=== PATIENT | female | born 1950 | race Two or more races ===

== ENCOUNTER 2024-09-26 07:12 | Emergency (ER) | payer OTHER, SELFPAY ==
[2024-09-26] VITALS (7 sets, daily range): BP systolic 141–191; BP diastolic 60–86; PULSE 60–72; RESP 13–18; TEMP 36.1–36.7; O2SAT 97–99; BMI 36.6
--- NOTE | 2024-09-26 09:00 | ED_ITS ---
HPI - General Adult General Chief complaint: Back Pain/Injury Stated complaint: back pain Time Seen by Provider: 09/26/24 08:58 Source: patient, family, RN notes reviewed, old records reviewed and typing section chief Mode of arrival: ambulatory Limitations: language barrier History of Present Illness ED Provider: Tavo HPI narrative: Patient is a 74-year-old female presenting to the emergency department with complaint of right lower back pain radiating down right leg since Saturday. Denies fall or other trauma. Reports history of 3 episodes of similar pain in the past, had CT scan in [place] and diagnosed with sciatica. Has been taking OTC medications, methocarbamol, and patches without relief. BP elevated in triage, patient relating to severe pain, denies headache, vision changes, chest pain, dizziness, or dyspnea. Denies saddle anesthesia, bowel or bladder incontinence, fevers. Denies urinary symptoms. MD complaint: back pain Onset (ago): day(s) Location: back Radiation: distal Severity: severe and similar to prior episodes Related Data Previous Rx's ?Medication ?Instructions ?Recorded diclofenac sodium 1 % topical gel 4 g topical QID #50 grams 09/26/24 prednisone 10 mg tablet See Rx Instructions .Route 09/26/24 .COMPLEX #10 tabs Allergies Allergy/AdvReac Type Severity Reaction Status Date / Time aspirin [ASPIRIN] Allergy Unknown SWELLING Verified 09/26/24 07:24 Review of Systems Review of Systems: As per HPI Yes all other systems are reviewed and are negative Constitutional: Constitutional: Reports as per HPI PMFSH Social History Social History Smoked in Last 30 Days: No Use of substances other than those prescribed or required for medical reasons: No Advance Directives: No Advance Directives Information Provided: No Physical Exam ED Vital Signs: Vital Signs - 24 hr 09/26/24 07:22 09/26/24 08:00 09/26/24 10:00 Temperature 97.0 F 97.8 F 98.1 F Pulse Rate 67 70 60 Respiratory Rate 18 13 13 Blood Pressure 141/67 H 191/86 H 150/60 H Pulse Oximetry 97 98 99 Oxygen Delivery Method Room Air Room Air Room Air 09/26/24 11:02 09/26/24 11:07 Temperature Pulse Rate 72 Respiratory Rate 16 16 Blood Pressure 141/63 H Pulse Oximetry 99 Oxygen Delivery Method Room Air BMI result Body Mass Index 36.6 Vital signs have been reviewed and appear to be correct. Blood pressure normal. Heart rate normal. Respiratory rate normal. Temperature normal. Oxygen saturation normal. Const General: cooperative, healthy appearing and no acute distress Orientation/consciousness: oriented to person, oriented to place, oriented to time and patient oriented x3 Limitations: no limitations [facility] Head: Yes normocephalic and Yes atraumatic Ears: external ears normal General nose exam: Normal external nose present Face and sinus: Yes face symmetric Mouth: oropharynx normal and moist mucous membranes Throat: Yes uvula midline Eyes Pupils: Equal, round and reactive pupils present Neck Neck: Yes normal visual inspection, Yes no meningeal signs and Yes supple Resp Effort & Inspection: normal respiratory effort and able to speak in complete sentences Auscultation: clear to auscultation bilaterally Cardio Rate: regular rate Rhythm: regular rhythm Heart sounds: S1 normal heart sound present and S2 normal heart sound present GI Palpation (GI): Soft to palpation and nontender Auscultation: normoactive bowel sounds General: Yes no CVA tenderness Back/Spine/Pelvis Back: no CVA tenderness Thoracic/Lumbar Spine: thoracic and lumbar spine normal to inspection, thoraco- lumbar ROM normal, pain with thoraco-lumbar ROM, No thoracic spinal tenderness, No lumbar spinal tenderness and straight leg raise positive right at 30 degrees Skin General skin exam: elasticity normal and turgor normal Neuro General: oriented to person, oriented to place, oriented to time, patient oriented x3, gait normal, tone normal, moves all extremities, Normal light touch and pain sensation, no meningeal signs, no focal motor deficits, CN's II-XI intact bilaterally and deep tendon reflexes 2+ bilaterally Cranial nerves: Yes Equal, round and reactive pupils present Cognition (Neuro): normal cognition Motor exam (neuro): 5/5 motor strength present throughout, Normal motor muscle tone present throughout and Motor abnormalities not present Extrem General: Yes full ROM, Yes no pedal edema and Yes no calf tenderness Psych Mental Status: mental status grossly normal Affect: normal affect Thought process: Normal thought process present Course Reevaluation(s) Reevaluation #1: Patient denies any relief from first dose of dilaudid, however, appears more comfortable and is able to lay in the bed whereas prior to that she was sitting on the edge of the bed constantly readjusting position. Blood pressure has also improved. Patient has aspirin allergy so unable to try NSAIDs, will give one additional dose of dilaudid. Time: 10:35 Reevaluation #2: Patient now reporting good relief of pain after 2nd dose of Dilaudid. Feel she is stable for discharge home with tapering course of prednisone and diclofenac gel. Advised follow up with PCP. Return precautions discussed at bedside. Patient and daughter verbalized understanding of and agreement with plan. Time: 11:51 Medications Administered Discontinued Medications Generic Name Dose Route Start Last Admin Trade Name Daniele PRN Reason Stop Dose Admin Hydromorphone HCl 1 mg 09/26/24 09:22 09/26/24 09:33 Hydromorphone Hcl 1 Mg/Ml Syringe IM 09/26/24 09:23 1 mg ONCE ONE Administration Protocol Hydromorphone HCl 1 mg 09/26/24 10:39 09/26/24 11:02 Hydromorphone Hcl 1 Mg/Ml Syringe IM 09/26/24 10:40 1 mg ONCE ONE Administration Protocol Prednisone 40 mg 09/26/24 09:22 09/26/24 09:33 Prednisone 20 Mg Tablet PO 09/26/24 09:23 40 mg ONCE ONE Administration Medical Decision Making Medical Decision Making [facility] Narrative: Patient is a 74-year-old female presenting to the emergency department with complaint of right lower back pain radiating down right leg since Saturday. On exam patient is awake, A+Ox3, VS WNL, afebrile, normal neurological exam wi thout focal deficits, physical exam findings as above. Given reported symptoms and physical exam findings, initial differential includes but is not limited to initial differential includes lumbar strain, lumbar radiculopathy, degenerative disc disease, disc herniation, spinal stenosis, spondylosis. Unlikely vertebral fracture as patient denies trauma. Do not suspect malignancy/mass, SEA, cauda equina/cord compression. Plan to medicate with prednisone and dilaudid. See course for remainder of clinical decision making. In-person automobile inspector was utilized for all interactions, assessments, and discussions. Differential Diagnosis Differential Diagnoses: The differential diagnosis associated with the presentation includes As per MDM Admission/Observation Consideration of admission/observation: Escalation of care including admission/observation considered Patient would have been admitted to the hospital had their work up had any findings where hospital admission was appropriate and their clinical presentation warranted hospital admission. External Record Review External record reviewed: Inpatient record, Office record and Outpatient record Prescription Management I considered prescription management with: Other Discharge Plan Discharge Clinical Impression: Lumbar radiculopathy Patient Disposition: Home, Self-Care Instructions: Lumbar Radiculopathy (ED) Additional Instructions: You were evaluated in the emergency department today for back pain. Your evaluation did not show signs of medical conditions requiring emergent intervention at this time. We recommended that you use Tylenol per package directions every 6 hours as needed for pain. You have been prescribed a tapering course of prednisone which is a steroid to decrease inflammation. You have also been prescribed diclofenac gel which is anti-inflammatory and can be applied to affected areas as prescribed. Please schedule an appointment for follow-up with your primary care physician this week for further evaluation of your symptoms. Return to the emergency department if you experience worsening back pain, difficulty walking, fevers, numbness, tingling, incontinence, groin numbness or tingling, or any other concerning symptoms. Prescriptions: New prednisone 10 mg tablet See Rx Instructions .ROUTE .COMPLEX Qty: 10 0RF Rx Instructions: 40mg ( 4 tabs ) x1 day, then 30 mg ( 3 tabs ) x1 day, then 20 mg ( 2 tabs ) x1 day, then 10 mg ( 1 tab) x1 day diclofenac sodium 1 % gel 4 g topical QID Qty: 50 0RF Rx Instructions: apply to back Print Language: Scottish
[2024-09-26] MEDS: predniSONE 20 MG TABLET 40 MG PO (09:33)
[2024-09-26] MEDS: HYDROmorphone HCl 1 MG/ML SYRINGE IM ×2 (09:33→11:02)
--- NOTE | 2024-09-26 09:48 | PC.NURSE ---
Patient congolese speaking, Daughter in law at bedside to help translate. Patient presents to ED c/o right sided back pain. Pain radiates from low right back down through RLE. Pain rated 10/10, aggravated by movement. Back pain started on Saturday and has improved. Denies SOB. Denies injury. Patient affirms having sciatic pain in the past and believes this may have spawned from recent trip to [place]. Patient given dilaudid IM for pain, somewhat effect. Patient hypertensive at 152/61 but all other VSS and up to date. Plan of care on going.
== END 2024-09-26 12:08 | disposition home or self-care (01) ==
PROVIDERS: Emergency Provider Emergency Medicine
DX: M54.16 Radiculopathy, lumbar region (principal); M54.50 Low back pain, unspecified
CPT/HCPCS: 96372; 99284; J1171